=== PATIENT | male | born 1970 | race Caucasian/White ===

== ENCOUNTER 2024-01-21 00:25 | Emergency (ER) | payer BC, SELFPAY ==
--- NOTE | ~2024-01-21 | CT_ITS ---
EXAMINATION: CT ABDOMEN AND PELVIS WITHOUT CONTRAST CLINICAL INFORMATION: Diarrhea, dehydration, weight loss COMPARISON: None available. TECHNIQUE: Multidetector volumetric imaging was performed from the superior aspect of the liver through the pubic symphysis. Sagittal and coronal reformatted images were obtained on the technologist's workstation. This CT examination was performed using dose optimization techniques as appropriate, variously including the following: *Automated exposure control *Adjustment of mA and/or kV according to patient size (this includes techniques or standardized protocols for targeted exams where dose is matched to indication/reason for exam; i.e. extremities or head) *Use of iterative reconstruction technique DLP: 1313 mGy-cm FINDINGS: LUNG BASES: Partial visualization of calcifications likely representing aortic leaflet calcifications. No definitive coronary artery calcifications. LIVER, GALLBLADDER, AND BILIARY TREE: The liver is normal in size, shape, and attenuation. No focal hepatic lesion or biliary ductal dilatation is present. The gallbladder is unremarkable with no evidence of radiopaque gallstones, gallbladder wall thickening, or obvious pericholecystic inflammatory changes. PANCREAS: Unremarkable. SPLEEN: Unremarkable. ADRENAL GLANDS: Unremarkable. KIDNEYS AND URETERS: The kidneys are normal in size, shape, and attenuation. No hydronephrosis, hydroureter, or calculi seen. No perinephric stranding. BLADDER: Decompressed GASTROINTESTINAL TRACT: Minimal diverticulosis of the descending colon and sigmoid colon. Normal appendix. No intestinal dilatation or mural thickening. No free intraperitoneal fluid or gas collections. Normal appearance of the sigmoid mesentery and small bowel mesentery. Normal appearance of the stomach and duodenum. ABDOMINAL WALL: . Periumbilical hernia containing omental fat measuring 1 cm in diameter without associated inflammatory changes. Small bilateral fat-containing inguinal hernias. LYMPH NODES: Normal. VASCULAR: Unremarkable. PELVIC VISCERA: Normal appearance of the prostate. Incidental note made of dystrophic calcifications within the prostate. OSSEOUS STRUCTURES: No suspicious skeletal abnormalities identified. Moderate multilevel chronic spondylosis of the lumbar spine characterized by partial visualization of multilevel mild-moderate posterior broad based disc-osteophyte complexes with finding is most present L5-S1 and L4-L4 and moderate multilevel facet hypertrophic changes. No vertebral body compression deformities. CT/CT abdomen pelvis wo IV con IMPRESSION: 1. No acute abnormalities identified. 2. Minimal colonic diverticulosis. No evidence of acute diverticulitis. No free intraperitoneal fluid or gas collections. Normal appendix. 3. Moderate multilevel chronic spondylosis of the lumbar spine. Electronically signed by: Landon Alvares MD 01/21/2024 03:10 AM EDT RP
[2024-01-21 00:33] VITALS: BP 116/76; PULSE 101; RESP 18; TEMP 37.1; O2SAT 96; BMI 48.2
[2024-01-21 00:49] LABS: Basophils Percent Auto 0.4 % (0-2); Eosinophils Absolute Auto 0.1 X10*3/uL (0.0-0.4); Eosinophils Percent Auto 0.8 % (0-4); Hematocrit 40.5 % (42.0-52.0); Hemoglobin 13.6 g/dl (14.0-18.0); Imm Gran Abs Auto 0.02 X10*3/uL (0.00-0.03); Imm Gran Pct Auto 0.2 % (0.0-0.4); Lymphocytes Absolute Auto 2.4 X10*3/uL (1.2-4.9); Lymphocytes Percent Auto 24.7 % (20-40); MANUAL DIFF FLAG SCAN; Mean Corpuscular HGB Conc 33.6 g/dl (31.0-36.0); Mean Corpuscular Hemoglobin 27.5 pg (27.0-33.0); Mean Platelet Volume 9.4 fL (9.4-12.4); Monocytes Absolute Auto 0.7 X10*3/uL (0.1-1.2); Monocytes Percent Auto 7.3 % (2-11); Neutrophils Absolute Auto 6.4 x10*3/uL (2.0-8.3); Neutrophils Percent Auto 66.6 % (45-73); Platelet Count 360 X10*3/uL (160-400); Red Blood Count 4.94 X10*6/uL (4.60-5.80); Red Cell Distribution Width 13.1 % (11.0-16.0); SCAN SMEAR FLAG 1; White Blood Count 9.6 X10*3/uL (4.8-10.8)
[2024-01-21 01:02] LABS: Alanine Aminotransferase 63 U/L (0-40); Albumin Level 4.1 g/dL (3.5-5.0); Alkaline Phosphatase 95 U/L (39-117); Anion Gap 14 (12-20); Aspartate Amino Transferase 32 U/L (5-37); Bilirubin Total 0.5 mg/dL (0.0-1.0); Blood Urea Nitrogen 18 mg/dL (9-16); Calcium 9.6 mg/dL (8.4-10.2); Carbon Dioxide 21 mmol/L (22-29); Chloride 107 mmol/L (96-108); Creatinine Clr Calc Pharmacy 111.3; Estimated Glomerular Filt Rate > 60; Glucose Random 87 mg/dL (60-115); Potassium 3.8 mmol/L (3.3-5.1); Sodium 138 mmol/L (135-145); Total Protein 7.4 g/dL (6.5-8.0)
--- NOTE | 2024-01-21 01:04 | ED_ITS ---
HPI - Nausea/Vomiting/Diarrhea General Chief complaint: Nausea/Vomiting/Diarrhea Stated complaint: diarrhea Time Seen by Provider: 01/21/24 00:57 Source: patient Mode of arrival: ambulatory Limitations: no limitations History of Present Illness ED Provider: AMINTA NDIAYE Narrative: 53 yo male with PMH of HTN, DM, obesity, HLD here with c/o 1 week of intermittent loose stools made worse with eating. No pain, no vomiting, no fevers, no blood. Denies travel, food exposures, sick contacts, abx use. He has not tried any medications to make it stop. He states this has never happened before. MD elicited complaint: diarrhea Onset (ago): week(s) (1) Description of diarrhea: watery Associated nausea: No Associated abdominal pain: No Severity: moderate Exacerbating factors: eating Relieving factors: none Context: other Associated symptoms: denies other symptoms Related Data Allergies Allergy/AdvReac Type Severity Reaction Status Date / Time No Known Allergies Allergy Verified 01/21/24 00:34 Review of Systems 2 Review of Systems: Constitutional : No Weight loss, No Fever, No Chills ENT/Mouth : No sore throat, No Rhinorrhea Eyes: No Swelling, No Redness Cardiovascular : No Chest Pain, No SOB, NoEdema Respiratory : No Cough, No Sputum, No Wheezing Gastrointestinal : no Nausea, no Vomiting, positive Diarrhea, no abdominal Pain, No Hematochezia, No Melena Genitourinary : No Dysuria, No Urinary Frequency, No Hematuria, No Urgency Musculoskeletal : No joint pain, No Myalgias, No Joint Swelling Skin : No Skin Lesions, No rash Neuro : No Weakness, No Numbness, No Dizziness, No Headache All other systems reviewed and are negative. Gastrointestinal: Gastrointestinal: Denies nausea PMFSH Past Medical History Attestation statement: The following information was validated with the patient. Medical History Hyperlipidemia Diabetes HTN (hypertension) Social History Social History (Updated 01/21/24 @ 01:28 by Es Lentz DO) Patient Tobacco Use Status: Never used Tobacco Smoked in Last 30 Days: No Use of substances other than those prescribed or required for medical reasons: No Advance Directives: No Advance Directives Information Provided: Yes Physical Exam 2 Vital Signs: Vital Signs: Last Vital Signs Temp 98.7 F 01/21/24 00:33 Pulse 101 H 01/21/24 00:33 Resp 18 01/21/24 00:33 BP 116/76 01/21/24 00:33 Pulse Ox 96 01/21/24 00:33 O2 Del Method Room Air 01/21/24 00:33 BMI result Body Mass Index 48.2 Appearance: Alert. Oriented X3. No acute distress. Eyes: Pupils equal, round and reactive to light. ENT: Pharynx normal. Neck: Normal inspection. Neck supple. CVS: Normal heart rate and rhythm. Pulses normal. Respiratory: No respiratory distress. Breath sounds normal. Abdomen: Soft and nontender. Skin: Skin warm and dry. Normal skin color. Normal skin turgor. Extremities: No lower extremity edema. No calf ttp Neuro: Oriented X 3. No motor deficit. No sensory deficit. Medications Administered Discontinued Medications Generic Name Dose Route Start Last Admin Trade Name Freq PRN Reason Stop Dose Admin Lactated Ringer's 1,000 mls @ 999 mls/hr 01/21/24 00:57 01/21/24 02:22 Lr IV 01/21/24 01:57 Infused .Q1H1M ONE Infusion Medical Decision Making Medical Decision Making [facility] Narrative: 53 yo male with PMH of HTN, DM, obesity, HLD here with c/o diarrhea x 1 week without known risk factors or cause he has benign abdominal exam denies pain, fevers, vomiting, blood at this time will obtain basic labs, hydrate, stool studies. Differential Diagnosis Differential Diagnoses: The differential diagnosis associated with the presentation includes diarrhea, colitis, dehydration Admission/Observation Consideration of admission/observation: Escalation of care including admission/observation considered no abdominal pain, not toxic, VS stable, lytes stable Lab Data [facility] Lab Attestation statement: I reviewed the patient's lab results. 01/21/24 00:43 01/21/24 00:43 Labs: Lab Results 01/21/24 01/21/24 Range/Units 00:43 01:25 WBC 9.6 (4.8-10.8) X10*3/uL RBC 4.94 (4.60-5.80) X10*6/uL Hgb 13.6 L (14.0-18.0) g/dl Hct 40.5 L (42.0-52.0) % MCV 82.0 (80.0-98.0) fL MCH 27.5 (27.0-33.0) pg MCHC 33.6 (31.0-36.0) g/dl RDW 13.1 (11.0-16.0) % Plt Count 360 (160-400) X10*3/uL MPV 9.4 (9.4-12.4) fL Immature Gran % (Auto) 0.2 (0.0-0.4) % Neut % (Auto) 66.6 (45-73) % Lymph % (Auto) 24.7 (20-40) % Mclean % (Auto) 7.3 (2-11) % Eos % (Auto) 0.8 (0-4) % Baso % (Auto) 0.4 (0-2) % Lymph # (Auto) 2.4 (1.2-4.9) X10*3/uL Mclean # (Auto) 0.7 (0.1-1.2) X10*3/uL Eos # (Auto) 0.1 (0.0-0.4) X10*3/uL Baso # (Auto) 0.0 (0.0-0.2) X10*3/uL Abs Immat Gran (auto) 0.02 (0.00-0.03) X10*3/uL Absolute Neuts (auto) 6.4 (2.0-8.3) x10*3/uL Absolute Nucleated RBC 0.000 (0.0-0.012) X10*3/uL Nucleated RBC % (auto) 0.0 (0.0-0.2) /100WBC Smear Tech's Comments VERIFIED Sodium 138 (135-145) mmol/L Potassium 3.8 (3.3-5.1) mmol/L Chloride 107 (96-108) mmol/L Carbon Dioxide 21 L (22-29) mmol/L Anion Gap 14 (12-20) BUN 18 H (9-16) mg/dL Creatinine 1.15 (0.5-1.4) mg/dL Estim Creat Clear Calc 111.3 Estimated GFR > 60 Random Glucose 87 (60-115) mg/dL Calcium 9.6 (8.4-10.2) mg/dL Total Bilirubin 0.5 (0.0-1.0) mg/dL AST 32 (5-37) U/L ALT 63 H (0-40) U/L Alkaline Phosphatase 95 (39-117) U/L Total Protein 7.4 (6.5-8.0) g/dL Albumin 4.1 (3.5-5.0) g/dL Lipase 26 (8-78) U/L C. difficile Tox B Gene NEGATIVE (Negative) Influenza Type A (PCR) NEGATIVE (Negative) Influenza Type B (PCR) NEGATIVE (Negative) RSV RNA Qual (PCR) NEGATIVE (Negative) SARS-CoV-2 RNA (RT-PCR) NEGATIVE (Negative) Independent Interpretation I performed an independent interpretation of an: CT Scan (no acute findings) Radiology Impression Discussion of test interpretation with radiology: I have reviewed the radiologist's reading. Prescription Management I considered prescription management with: Other Discharge Plan Discharge Clinical Impression: Diarrhea Patient Disposition: Home, Self-Care Instructions: Acute Diarrhea (ED), Nutrition Tips for Relief of Diarrhea (ED) Additional Instructions: mild dehydration, drink plenty of fluids BRATTY diet negative for covid/flu/rsv return for worsening symptoms, fevers, pain, bloody stools or any other concerns. it is okay to take immodium as long as you do not have severe pain, fevers, bloody stools stool studies are pending if abnormal we will call you CT/CT abdomen pelvis wo IV con IMPRESSION: 1. No acute abnormalities identified. 2. Minimal colonic diverticulosis. No evidence of acute diverticulitis. No free intraperitoneal fluid or gas collections. Normal appendix. 3. Moderate multilevel chronic spondylosis of the lumbar spine. Stand Alone Forms: Work/School Release Print Language: Citizen Of [place]
[2024-01-21 01:07] LABS: SLIDE REVIEW VERIFIED
[2024-01-21 01:11] LABS: Lipase 26 U/L (8-78)
[2024-01-21] MEDS: Lactated Ringers 1,000 ML 999 ML IV (01:20)
--- OUTSIDE RECORDS SUMMARY | 2024-01-21 01:45 | XMS_ITS | Continuity of Care Document ---
Author Organization [facility] Address [address] [place] [id number]- Care Team Providers Care Psych Therapist Name Role Phone Not on Staff, PCP Primary Care Physician Unavail able Encounter [facility] Date(s): 07/25/21 - 07/28/[address] [address] Discharge Disposition: A-D/C Home Attending Physician: Luz Marina Don MD Admitting Physician: Ghazal RODRIGUEZ, Lucia Ortiz Referring Physician: Not on Staff, Referring MD Allergies, Adverse Reactions, Alerts No Known Allergies Immunizations Given and Recorded Vaccine Date Status Refusal Reason tetanus/diphtheria/pertussis, acel(Tdap) 07/26/21 Given Medications acetaminophen 325 mg oral tablet 650 mg, By Mouth, Every 4 hours, PRN, Temperature Greater than 100.5, Refills 0, Maintenance, Pain , Mild, 07/28/21 9:51:00 EDT, Partial fill upon patient request if the prescription is for a schedule II opioid drug. Start Date: 07/28/21 Status: Ordered Acetaminophen Tablet 650 mg, Tablet, By Mouth, Every 4 hours, PRN for Pain , Mild, Temperature Greater than 100.5, Routine, 07/25/21 23:54:00 EDT Start Date: 07/25/21 Stop Date: 07/28/21 Status: Discontinued doxycycline monohydrate 100 mg oral tablet 1 tablet = 100 mg, By Mouth, 2 times a day, for 10 days, # 20 tablet, 0 Refills, Acute 08/07/21 9:53:00 EDT, 07/28/21 9:53:00 EDT, Tablet, [facility], Partial fill upon patient request if the prescription is for a schedule II opioid drug... Start Date: 07/28/21 Stop Date: 08/07/21 Status: Ordered ferrous fumarate 324 mg oral tablet 1 tablet = 324 mg, By Mouth, Daily, # 30 tablet, 0 Refills, Maintenance, 07/28/21 10:43:00 EDT, Tablet, [facility], Partial fill upon patient request if the prescription is for a schedule II opioid drug., 166.2, kg, 07/26/21 12:41:00 EDT... Start Date: 07/28/21 Status: Ordered potassium phosphate-sodium phosphate 250 mg-280 mg-160 mg oral powder for reconstitution 1 pack/packet, By Mouth, 4 times a day, # 8 pack/packet, 0 Refills, Maintenance, 07/28/21 10:43:00 EDT, REC Powder, [facility], Partial fill upon patient request if the prescription is for a schedule II opioid drug., 1 pack/packet By Ariadne... Start Date: 07/28/21 Stop Date: 07/30/21 Status: Ordered Results Orders for Microbiology Reports Name Date Blood Culture 07/25/21 Blood Culture #2 07/25/21 Microbiology Reports TEST:Blood Culture, Second Order STATUS:Unauthenticated BODY SITE: SOURCE:Blood COLLECTED DATE/TIME:07/25/21 7:57 PM Blood Culture, Second Order SPECIMEN DESCRIPTION : BLOOD NO SITE SPECIAL REQUESTS : NONE CULTURE : NO GROWTH 3 DAYS REPORT STATUS : PRELIMINARY REPORT TEST:Blood Culture STATUS:Unauthenticated BODY SITE: SOURCE:Blood COLLECTED DATE/TIME:07/25/21 6:57 PM Blood Culture SPECIMEN DESCRIPTION : BLOOD NO SITE SPECIAL REQUESTS : NONE CULTURE : NO GROWTH 3 DAYS REPORT STATUS : PRELIMINARY REPORT Radiology Reports * Exam Date Time Procedure Performing Provider Status 07/25/21 8:43 PM Chest 2 Views Frontal and Lat Linn Long; Auth (Verified) Notes: (Chest 2 Views Frontal and Lat) Reason For Exam: Shortness of Breath, Fever;Other: RESULT: Chest 2 Views Frontal and Lat Chest 2 Views Frontal and Lat INDICATION: Confusion COMPARISON: None. FINDINGS: LINES AND TUBES: None. Limited examination due to patient's body habitus /underpenetration. LUNGS AND PLEURA: Low lung volumes. Clear lungs. No pleural effusion. No pneumothorax. HEART, MEDIASTINUM AND SAYRA: Heart is normal in size. Normal upper mediastinal and hilar contour. BONES AND SOFT TISSUES: No acute abnormality. IMPRESSION: No acute abnormality. I have personally reviewed the images and I agree with this report. WSN: [id number] Ordering Physician: Natasha Bragg Dictated By: Alok Johnson DO Dictated Date/Time: 07/25/21 8:57 pm Reviewed By: Jacob Jordan MD Signed By: Jacob Jordan MD Signed Date/Time: 07/25/21 9:02 pm Transcribed By: FANNIE Transcribed Date/Time: 07/25/21 8:54 pm Vital Signs Most recent to oldest [Reference Range]: 1 2 3 Weight 166.2 kg (07/26/21 12:41 PM) 166.2 kg (07/26/21 10:13 AM) 166.2 kg (07/26/21 7:58 AM) Oxygen Saturation [94-100 %] 98 % (07/28/21 5:42 AM) 96 % (07/27/21 8:00 PM) 99 % (07/27/21 1:00 PM) Pulse Rate [55-90 bpm] 105 bpm *H* (07/28/21 5:42 AM) 103 bpm *H* (07/27/21 8:00 PM) 113 bpm *H* (07/27/21 1:00 PM) Blood Pressure [90-138/55-84 mm Hg] 139/87mm Hg *H* (07/28/21 5:42 AM) 126/81mm Hg (07/27/21 8:00 PM) 140/83mm Hg *H* (07/27/21 1:00 PM) Respiratory Rate [16-30 br/min] 16 br/min (07/28/21 7:21 AM) 18 br/min (07/28/21 5:42 AM) 20 br/min (07/27/21 8:00 PM) Temperature [96.8-100.4 DegF] 99.5 DegF (07/28/21 5:42 AM) 98.1 DegF (07/27/21 8:00 PM) 99.3 DegF (07/27/21 1:00 PM) Liters per Minute 0 L/min (07/26/21 10:13 AM) Mode of Delivery (Oxygen) Room air (07/28/21 5:42 AM) Room air (07/27/21 8:00 PM) Room air (07/27/21 5:24 AM) Blood pressure sites Arm, right (07/28/21 5:42 AM) Arm, right (07/27/21 8:00 PM) Arm, right (07/27/21 1:00 PM) Temperature Route Oral (07/28/21 5:42 AM) Oral (07/27/21 8:00 PM) Oral (07/27/21 1:00 PM) Dry Weight 166.2 kg (07/26/21 12:41 PM) 166.2 kg (07/26/21 10:13 AM) 166.2 kg (07/26/21 7:59 AM) Weight Obtained Via Standing scale (07/26/21 7:58 AM) Dry Weight Obtained Via Standing scale (07/26/21 7:59 AM) Social History Social History Type Response Smoking Status Never (less than 100 in lifetime) entered on: 07/25/21 Sex
--- OUTSIDE RECORDS SUMMARY | 2024-01-21 01:45 | XMS_ITS ---
Author Organization [facility] Address [address] [place] [address] Care Team Providers Care Mailmaster Name Role Phone Jomar RODRIGUEZ, Quintin Primary Care Provider Unavailab Vladimir Johnson Unavailable [phone] Encounters Encounter Location Date [facility] [address] [facility] [address] [place] [address] 02/24/2023 Vladimir Mccabe PLAN OF TREATMENT No Information
--- OUTSIDE RECORDS SUMMARY | 2024-01-21 01:46 | XMS_ITS ---
Author Organization [facility] Address [address] [place] [address] Care Team Providers Care Ammonia Still Operator Name Role Phone Jomar RODRIGUEZ, Quintin Primary Care Provider Unavailab Vladimir Johnson Unavailable [phone] MEDICATIONS Medication SIG (Take, Route, Frequency, Duration) Notes Start Date End Date Status Ciclopirox Olamine 0.77 % 1 application to affected area Externally Twice a day to effected areas on feet for 30 days Active Encounters Encounter Location Date [facility] [address] [address] 11/11/2022 Vladimir Mccabe Ingrowing nail L60.0 ; Type 2 diabetes mellitus with diabetic polyneuropathy E11.42 ; Tinea unguium B35.1 ; Pain in right toe(s) M79.674 ; Pain in left toe(s) M79.675 and Tinea pedis B35.3 ASSESSMENTS Encounter Date Diagnosis Assessment Notes Treatment Notes Treatment Clinical Notes 11/11/2022 Ingrowing nail (ICD-10 - L60.0) 11/11/2022 Type 2 diabetes mellitus with diabetic polyneuropathy (ICD-10 - E11.42) Patient Educated with: DIABETIC FOOT CARE INSTRUCTIONS.pdf (DIABETIC FOOT CARE INSTRUCTIONS.pdf ) 11/11/2022 Tinea unguium (ICD-1 0 - B35.1) 11/11/2022 Pain in right toe(s) (ICD-10 - M79.674) 11/11/2022 Pain in left toe(s) (ICD-10 - M79.675) 11/11/2022 Tinea pedis (ICD-10 - B35.3) PLAN OF TREATMENT Medication Medication Name Sig Start Date Stop Date Notes Ciclopirox Olamine 0.77 % 1 application to affected area Externally Twice a day to effected areas on feet for 30 days Treatment Notes Assessment Notes Type 2 diabetes mellitus wit h diabetic polyneuropathy Patient Educated with: DIABETIC FOOT CARE INSTRUCTIONS.pdf (DIABETIC FOOT CARE INSTRUCTIONS.pdf) Progress Notes * Examination Category Sub-Category Detail Notes Ingrown Nail INSPECTION: Reveals nail inc urvation, pain on palpation, groove hypertrophy, groove ischemia, Lateral nail border, T5 Neurological SENSORY: Neurological exa m demonstrates, reduced vibration sensation, 5.07 monofilament test performed at plantar aspects of 5 varied sites per foot shows sensation, reduced , B/L Dermatologic SKIN FINDINGS: Skin exam reveal s keratotic lesion(s) located at, Plantar, Heel(s), B/L , Skin shows sign(s) of, erythema, scaling, in a moccasin fashion, no fissure(s) present, B/L Ophthalmology Referral DIABETES EYE EXAM Diabetic Reti nopathy Screening:: No Vascular DP PULSES(B): 2/4, B/L PT PULSES(B): 1/4, B/L CAPILLARY FILL TIME: immediate, all digi ts, B/L Nails NAILS are: Elongated, overg rown, dystrophic, lytic, greater than 3mm thick, discolored and friable with crumbly malodorous subungual debris, with dull to no pain on palpation due to neuropathy, TA, T5, T1, T4, T8, T9 History and Physical Notes * HPI (History of Present Illness) Category Sub-Category Detail Notes Skin problems Nature: dryness, discolo red Location: B/L , Forefoot, Heel /Rearfoot, B/L Duration: several months Onset/Cause: unknown Course: worsened Aggravated by: no aggrevating facto rs Treatments: self care Severity/Quality: moderate At Risk footcare Pt States Last PCP Visit: Date: 03/22
--- OUTSIDE RECORDS SUMMARY | 2024-01-21 01:46 | XMS_ITS | Patient Health Record ---
[facility] Address [address] [place] [address] Care Team Providers Care Senior Clinical Data Analyst Name Role Phone Jomar RODRIGUEZ, Quintin Primary Care Provider UnavailVladimir Addison Unavailable [phone] ALLERGIES No Known Allergies REASON FOR REFERRAL No Information MEDICATIONS Medication SIG (Take, Route, Frequency, Duration) Notes Start Date End Date Status Ciclopirox Olamine 0.77 % 1 application to affected area Externally Twice a day to effected areas on feet for 30 days Active metFORMIN HCl 500 MG 1 tablet with a hayley l Orally Once a day for 30 day(s) Active SOCIAL HISTORY Tobacco Use: Social History Observation Description Date Details (start date - stop date) Never Smoker NA - NA Sex Assigned At : Social History Observation Description Sex Assigned At Unknown Tobacco Use/Smoking Question Answer Notes Are you a: nonsmoker Alcohol Screen Question Answer Notes Did you have a drink containing alcohol in the p ast year? No Points 0 Interpretation Negative Tobacco use other than smoking: Question Answer Notes Are you an other tobacco user? No PROBLEMS Problem Type ICD Code Onset Dates Problem Status W/U Status Risk SNOMED Code Notes Problem Type 2 diabetes mellitus with diabetic polyneuropathy (E11.42) Active confirmed Polyneuropathy due to type 2 diabetes mellitus ([id number]) Encounters Encounter Location Date [facility] [address] [facility] [address] [place] [address] 02/24/2023 Vladimir Mccabe PLAN OF TREATMENT Pending Test Test Name Order Date [id number] SKIN LESIONS, 2 TO 4 05/27/19 23 [id number] DYSTROPHIC NAILS ANY # Insurance Providers Payer Name Payer Address Payer Phone Subscriber Number Group Number Insured Name Patient Relationship to Insured Coverage Start Date Coverage End Date [facility] [id number] [place] [address] [id number] Darrel Gloria Self - patient is the insured MEDICAL (GENERAL) HISTORY Medical History History ICD Code CAD (Cholesterol) covid-19 Diabetic Headaches/Migraines High blood pressure Chicken pox Surgical History Surgery Date(Month/Year) Hospitalization History Reason Date(Month/Year) leg cellulitis 2021
--- OUTSIDE RECORDS SUMMARY | 2024-01-21 01:46 | XMS_ITS ---
Author Organization [facility] Address [address] [place] [address] Care Team Providers Care Field Nurse Case Manager Name Role Phone Jomar RODRIGUEZ, Quintin Primary Care Provider Unavailab Vladimir Johnson Unavailable [phone] REASON FOR VISIT Cx 02/24/23 appt, per Dr. Mccabe Encounters Encounter Location Date Provider [facility] [address] [place] [address] 01/12/2023 Vladimir Mccabe PLAN OF TREATMENT No Information
[2024-01-21 02:09] LABS: Influenza A PCR NEGATIVE (Negative); Influenza B PCR NEGATIVE (Negative); Resp Syncy Virus RNA Qual PCR NEGATIVE (Negative); SARS COV2 PCR INHOUSE NEGATIVE (Negative)
[2024-01-21 02:22] LABS: CDiff Gene PCR NEGATIVE (Negative)
[2024-01-21 03:25] VITALS: BP 116/76; PULSE 101; RESP 18; TEMP 37.1; O2SAT 96
[2024-01-21 09:42] LABS: Adenovirus F 40/41 Detect (Not Detect.); Astrovirus Not Detected (Not Detect.); Campylobacter Not Detected (Not Detect.); Cryptosporidium Not Detected (Not Detect.); Cyclospora cayetanensis Not Detected (Not Detect.); E. coli EAEC Not Detected (Not Detect.); E. coli EPEC Not Detected (Not Detect.); E. coli ETEC Not Detected (Not Detect.); E. coli STEC Not Detected (Not Detect.); Entamoeba histolytica Not Detected (Not Detect.); Giardia lamblia Not Detected (Not Detect.); Norovirus GI/GII Not Detected (Not Detect.); Plesiomonas shigelloides Not Detected (Not Detect.); Rotavirus A Not Detected (Not Detect.); Salmonella Not Detected (Not Detect.); Sapovirus Not Detected (Not Detect.); Shigella sp./EIEC Not Detected (Not Detect.); Vibrio Not Detected (Not Detect.); Vibrio Cholerae Not Detected (Not Detect.); Yersinia enterocolitica Not Detected (Not Detect.)
== END 2024-01-21 03:25 | disposition home or self-care (01) ==
PROVIDERS: Emergency Provider Emergency Medicine; PCP Internal Medicine
DX: R11.2 Nausea with vomiting, unspecified (principal); R19.7 Diarrhea, unspecified; R10.2 Pelvic and perineal pain; Z03.818 Encounter for observation for suspected exposure to other biological agents ruled out; Z79.899 Other long term (current) drug therapy
CPT/HCPCS: 0241U; 36415; 74176; 80053; 83690; 85025; 87493; 87507; 96360; 99284; J7120